=== PATIENT | male | born 1980 ===

== ENCOUNTER → 2016-11-01 | Outpatient (REF) ==
--- NOTE | 2016-11-01 13:16 | DI ---
EXAM: CHEST FRONTAL AND LATERAL VIEWS HISTORY: [facility] annual screening. COMPARISON: 10/12/2015 FINDINGS: Heart size and mediastinal contour remain within normal limits. No acute infiltrates. Normal vascularity with no pleural fluid or pneumothorax. The bony thorax has no acute finding. IMPRESSION: No acute process.
== END ==
LOC: RAD 11:38
DX: Z02.89 Encounter for other administrative examinations (principal)